=== PATIENT | male | born 1960 | race Caucasian/White ===

== ENCOUNTER 2022-07-17 08:57 | Observation (INO) | payer BC ==
[2022-07-17 10:23] VITALS: BMI 24.4
[2022-07-17 10:24] LABS: Phosphorus 3.9 mg/dL (2.3-4.7)
[2022-07-17 10:26] LABS: Acetaminophen Less than 10.0 mcg/mL (10.0-30.0); Anion Gap 15 mmol/L (10-20); BUN (Urea Nitrogen) 8 mg/dL (8.4-25.7); Calc. Creatinine Clearance 115 mL/min (70-130); Calcium 8.4 mg/dL (7.8-10.44); Carbon Dioxide 21 mmol/L (22-29); Chloride 103 mmol/L (98-107); Estimated GFR 102; Glucose 67 mg/dL (70-105); Lipase 38 U/L (8-78); Magnesium 1.3 mg/dL (1.6-2.6); Potassium 4.2 mmol/L (3.5-5.1); Sodium 135 mmol/L (136-145)
[2022-07-17] MEDS ORDERED: Ondansetron PF 4 MG/2 ML Vial IVP PRN (10:30)
[2022-07-17] MEDS ORDERED: Morphine 2 MG/ML VIAL SLOW IVP SCH (10:30)
[2022-07-17] MEDS ORDERED: Acetaminophen 325 MG TAB PO PRN (10:32)
[2022-07-17] MEDS ORDERED: Senokot S 8.6-50 MG TAB PO PRN (10:32)
[2022-07-17] MEDS ORDERED: Pantoprazole 40 MG VIAL IVP SCH (10:35)
[2022-07-17] MEDS ORDERED: Lorazepam 1 MG TAB PO PRN (10:36)
[2022-07-17] MEDS ORDERED: Lorazepam 2 MG/ML VIAL IVPB PRN (10:36)
[2022-07-17] MEDS ORDERED: Nitroglycerin 0.4 MG TAB (25 Tab Bottle) SL PRN (10:43)
[2022-07-17] MEDS ORDERED: Folic Acid 1 MG TAB PO SCH (10:45)
[2022-07-17] MEDS ORDERED: Sodium Chloride 0.9% 1,000 ML IV SCH ×2 (10:45)
[2022-07-17] MEDS ORDERED: Electrolyte Replacement Protocol 1 EACH FS SCH (10:45)
[2022-07-17] MEDS ORDERED: Ipratropium/Albuterol 3 ML NEB NEB PRN (10:47)
[2022-07-17] MEDS ORDERED: Thiamine 100 MG TAB PO SCH (10:48)
[2022-07-17] MEDS ORDERED: Dextrose 50% Abboject 50 ML SYRINGE SLOW IVP ONE (10:57)
[2022-07-17] MEDS ORDERED: Dextrose 50% Abboject 50 ML SYRINGE SLOW IVP SCH (11:15)
[2022-07-17] MEDS ORDERED: Thiamine HCl 200 MG/2 ML VIAL SLOW IVP SCH ×2 (11:15→12:00)
[2022-07-17 11:21] LABS: Phosphorus 3.5 mg/dL (2.3-4.7)
[2022-07-17 11:29] LABS: Troponin I Less than 0.010 ng/mL (< 0.028)
[2022-07-17] MEDS: Magnesium 2 GM/50 ML(in water) 2 GM in Premix Bag 1 BAG IVPB SCH ×2 (11:38→14:20)
[2022-07-17] MEDS: Nicotine 14 MG PATCH TD SCH (12:54)
[2022-07-17 16:03] LABS: SARS-CoV-2 NAA Rapid Test Not Detected (NotDetected)
[2022-07-17 16:45] LABS: Hemoglobin A1c 4.1 % (4.0-6.0)
[2022-07-17] MEDS ORDERED: Atorvastatin Calcium 40 MG TAB PO SCH (21:00)
[2022-07-17] MEDS ORDERED: Famotidine 20 MG TAB PO SCH (21:00)
[2022-07-17] MEDS: Carvedilol 12.5 MG TAB PO SCH (21:22)
[2022-07-18 04:48] LABS: #Eosinphils 0.1 10x3/uL (0.0-0.5); #Monocytes 0.6 10x3/uL (0.0-1.1); #Neutrophils 2.1 10x3/uL (1.5-8.4); %Basophils 0.8 % (0.0-2.0); %Eosinophils 2.9 % (0.0-6.0); %Lymphocytes 26.6 % (18.0-47.0); %Monocytes 14.4 % (0.0-10.0); Hemoglobin 11.4 g/dL (13.5-17.5); Mean Corpuscular HGB CONC 36.3 g/dL (32.0-36.0); Mean Corpuscular Hemoglobin 34.3 pg (27.0-33.0); Mean Corpuscular Volume 94.6 fl (81.2-95.1); Mean Platelet Volume 8.3 fl (7.4-10.4); Platelet Count 127 10x3/uL (150-450); RBC Distribution Width 13.4 % (11.5-14.5); Red Blood Cell (RBC) Count 3.32 10x6/uL (4.32-5.72); White Blood Cell (WBC) Count 3.8 10x3/uL (3.5-10.5)
[2022-07-18 05:00] LABS: Anion Gap 12 mmol/L (10-20); BUN (Urea Nitrogen) 5 mg/dL (8.4-25.7); Calc. Creatinine Clearance 118 mL/min (70-130); Calcium 8.5 mg/dL (7.8-10.44); Carbon Dioxide 23 mmol/L (22-29); Chloride 102 mmol/L (98-107); Estimated GFR 103; Glucose 82 mg/dL (70-105); Magnesium 1.8 mg/dL (1.6-2.6); Potassium 3.9 mmol/L (3.5-5.1); Sodium 133 mmol/L (136-145)
[2022-07-18] MEDS ORDERED: Magnesium 2 GM/50 ML(in water) 2 GM in Premix Bag 1 BAG IVPB SCH (06:00)
[2022-07-18 08:26] VITALS: TEMP 98.6
[2022-07-18] MEDS ORDERED: Allopurinol 300 MG TAB PO SCH (09:00)
[2022-07-18] MEDS ORDERED: Montelukast Sodium 10 mg Tablet PO SCH (09:00)
[2022-07-18] MEDS ORDERED: Thiamine 100 MG TAB PO SCH (09:00)
[2022-07-18] MEDS ORDERED: Aspirin 81 mg Enteric Coated Tablet PO SCH (09:00)
[2022-07-18] MEDS ORDERED: Folic Acid 1 MG TAB PO SCH (09:00)
[2022-07-18] MEDS ORDERED: Lisinopril 20 MG TAB PO SCH (09:00)
[2022-07-18] MEDS: Carvedilol 12.5 MG TAB PO SCH (10:13)
[2022-07-18] MEDS ORDERED: Lorazepam 1 MG TAB PO PRN (10:37)
[2022-07-18] MEDS: Nicotine 14 MG PATCH TD SCH (11:38)
[2022-07-18 12:03] VITALS: BP 152/85
[2022-07-19] MEDS ORDERED: Lorazepam 1 MG TAB PO PRN (10:37)
[2022-07-20] MEDS ORDERED: Thiamine 100 MG TAB PO SCH (12:00)
== END 2022-07-18 14:50 | disposition home or self-care (01) ==
LOC: INTOOBSV 08:57 → CSHTELE 08:57
PROVIDERS: ADMIT Internal Medicine; ATTEND Nurse Practitioner Acute Care
DX: R07.89 Other chest pain (principal); I35.0 Nonrheumatic aortic (valve) stenosis; I10 Essential (primary) hypertension; F17.220 Nicotine dependence, chewing tobacco, uncomplicated; M10.9 Gout, unspecified; F10.10 Alcohol abuse, uncomplicated; E83.42 Hypomagnesemia; D64.9 Anemia, unspecified; M19.90 Unspecified osteoarthritis, unspecified site; F10.129 Alcohol abuse with intoxication, unspecified; I25.10 Atherosclerotic heart disease of native coronary artery without angina pectoris; Z20.822 Contact with and (suspected) exposure to COVID-19; E78.1 Pure hyperglyceridemia; K21.9 Gastro-esophageal reflux disease without esophagitis; Z79.82 Long term (current) use of aspirin; Z79.899 Other long term (current) drug therapy; Z88.8 Allergy status to other drugs, medicaments and biological substances
CPT/HCPCS: 36415; 80048; 80143; 83036; 83690; 83735; 84100; 85025; 93005; 93010; 93306; 94760; 96374; 96375; 96376; 80307; C9113; G0378; J2272; J2405; J3411; J3475; J7050; J7999